=== PATIENT | female | born 1990 | race Caucasian/White ===

== ENCOUNTER 2017-11-07 10:10 | Emergency (ER) | payer OTHER ==
[2017-11-07 10:16] VITALS: BP 152/79
--- NOTE | 2017-11-07 11:04 | XRAY Report ---
Reason: productive cough Procedure Date: 11/07/2017 Accession Number: [id number] / [id number] Procedure: XR - Chest 2 View X-Ray CPT Code: 95821 FULL RESULT: EXAM: CHEST RADIOGRAPHY EXAM DATE: 11/07/2017 10:50 AM. CLINICAL HISTORY: Productive cough for about a week. COMPARISON: None. TECHNIQUE: 2 views. FINDINGS: Lungs/Pleura: No focal opacities evident. No pleural effusion. No pneumothorax. Normal volumes. Mediastinum: Heart and mediastinal contours are unremarkable. Other: None. IMPRESSION: 1. Normal 2-view chest radiography. 2. No consolidation evident. RADIA
--- NOTE | 2017-11-07 11:51 | ED Physician Documentation ---
PD HPI URI - Stated complaint Stated Complaint: COUGH - Chief complaint Chief Complaint: Resp - History obtained from History obtained from: Patient - History of Present Illness Timing - onset: How many weeks ago (1) Timing duration: Weeks (1) Timing details: Gradual onset, Still present Associated symptoms: Ear pain, Nasal congestion, Rhinorrhea, Sinus pain, Productive cough, Dyspnea Improves by: MDI/nebulizer Similar symptoms before: Diagnosis (asthma and OM) Recently seen: Not recently seen - Additional information Additional information: 27-year-old female has recently moved back to [address] [place] [address]. She has a history of asthma and she uses an inhaler. On her good days she uses an inhaler maybe once per week. She has had use her inhaler 3 times per day over the past week and she is coughing up phlegm. She has ear pain and has chronic otitis. She has chest pain with coughing paroxysms. Review of Systems Constitutional: denies: Fever, Chills, Myalgias Eyes: denies: Decreased vision Ears: reports: Ear pain Nose: reports: Rhinorrhea / runny nose, Congestion, Sinus pressure / pain Throat: reports: Sore throat Cardiac: reports: Chest pain / pressure. denies: Palpitations Respiratory: reports: Dyspnea, Cough, Wheezing GI: denies: Vomiting Skin: denies: Rash Musculoskeletal: denies: Neck pain, Back pain, Extremity pain Neurologic: denies: Generalized weakness, Focal weakness PD PAST MEDICAL HISTORY - Past Medical History Past Medical History: Yes Respiratory: Asthma Neuro: Headaches GI: GERD, Chronic constipation, Other Psych: Depression, Anxiety Musculoskeletal: Other Other Past Medical History: elers danlos syndrome - Past Surgical History Past Surgical History: Yes HEENT: Myringotomy (tubes) - Present Medications Home Medications: Ambulatory Orders Medication Instructions Recorded Confirmed Albuterol Sulf [Ventolin Hfa 1 - 2 puffs INH Q4HR PRN #1 inhaler 11/07/17 Inhaler] Azithromycin [Zithromax] 250 mg PO DAILY #6 tablet 11/07/17 Sertraline [Zoloft] 50 mg PO DAILY 11/07/17 11/07/17 - Allergies Allergies/Adverse Reactions: Allergies Allergy/AdvReac Type Severity Reaction Status Date / Time Penicillins Allergy Rash Verified 11/07/17 10:15 - Social History Does the pt smoke?: Yes Smoking Status: Current some day smoker Does the pt drink ETOH?: Yes Does the pt have substance abuse?: No - Immunizations Immunizations are current?: Yes - POLST Patient has POLST: No PD ED PE NORMAL - Vitals Vital signs reviewed: Yes (hypertensive systolic ) - General General: Alert and oriented X 3, No acute distress, Well developed/nourished - HEENT HEENT: Atraumatic, PERRL, EOMI, Pharynx benign, Other (There is tympanosclerosis bilaterally and inflamation and distortion of the TM on the left. ) - Neck Neck: Supple, no meningeal sign, No bony TTP - Cardiac Cardiac: RRR, No murmur - Respiratory Respiratory: No respiratory distress, Other (scattered wheezes ) - Abdomen Abdomen: Soft, Non tender - Back Back: No CVA TTP, No spinal TTP - Derm Derm: Normal color, Warm and dry, No rash - Extremities Extremities: No deformity, No edema - Neuro Neuro: Alert and oriented X 3, No motor deficit, No sensory deficit, Normal speech Eye Opening: Spontaneous Motor: Obeys Commands Verbal: Oriented GCS Score: 15 - Psych Psych: Normal mood, Normal affect Results - Vitals Vitals: Vital Signs - 24 hr 11/07/17 10:12 Temperature 36.7 C Heart Rate 97 Respiratory 16 Rate Blood Pressure 152/79 H O2 Saturation 98 Oxygen O2 Source Room air - Rads (name of study) 2 veiw chest Radiology: Prelim report reviewed (Impression: 1. Normal two-view chest radiography. No consolidation evident.), EMP read indepedently, See rad report PD MEDICAL DECISION MAKING - ED course Complexity details: reviewed results, re-evaluated patient, considered differential, d/w patient ED course: 27-year-old female with a history of asthma has exacerbation of her asthma associated with an upper respiratory infection with otitis media. She is administered Dexamethasone 10 [address] orally [address] will place her on some azithromycin and refill her albuterol. - Sepsis Event Vital Signs: Vital Signs - 24 hr 11/07/17 10:12 Temperature 36.7 C Heart Rate 97 Respiratory 16 Rate Blood Pressure 152/79 H O2 Saturation 98 Oxygen O2 Source Room air Departure - Departure Disposition: 01 Home, Self Care Clinical Impression: Asthmatic bronchitis with exacerbation Qualifiers: Asthma severity: mild Asthma persistence: intermittent Qualified Code(s): J45.21 - Mild intermittent asthma with (acute) exacerbation Otitis media Qualifiers: Otitis media type: suppurative Chronicity: acute Laterality: left Condition: Stable Instructions: ED Bronchitis Asthmatic, ED Otitis Media Acute Adult Follow-Up: [facility] [Provider Group] Prescriptions: Albuterol Sulf [Ventolin Hfa Inhaler] 1 - 2 puffs INH Q4HR PRN #1 inhaler PRN Reason: Shortness Of Air/Wheezing Azithromycin [Zithromax] 250 mg PO DAILY #6 tablet
[2017-11-07] MEDS ORDERED: DEXAMETHASONE 10 MG/ML VIAL PO STA (12:07)
[2017-11-07] MEDS ORDERED: CHERRY SYRUP 10 ML UDC PO ONE (12:14)
== END 2017-11-07 12:20 | disposition home or self-care (01) ==
LOC: ED 10:10
DX: J45.21 Mild intermittent asthma with (acute) exacerbation (principal); J06.9 Acute upper respiratory infection, unspecified; H66.002 Acute suppurative otitis media without spontaneous rupture of ear drum, left ear; F17.200 Nicotine dependence, unspecified, uncomplicated
CPT/HCPCS: 71046; 99283; A9270

== ENCOUNTER 2018-02-16 11:37 | Emergency (ER) | payer MEDICAID, OTHER ==
[2018-02-16 11:46] VITALS: BP 149/98
[2018-02-16] MEDS ORDERED: KETOROLAC 60 MG/2 ML VIAL IM STA (12:33)
[2018-02-16] MEDS ORDERED: CYCLOBENZAPRINE 10 MG TABLET PO STA (12:33)
--- NOTE | 2018-02-16 12:39 | ED Physician Documentation ---
History of Present Illness - Stated complaint Stated Complaint: UPPER BACK PX - Chief complaint Chief Complaint: Back Pain - History obtained from History obtained from: Patient, Family - History of Present Illness Timing: How many weeks ago (2) Pain level max: 8 Pain level now: 8 - Additonal information Additional information: 27-year-old female with pain that started in the right upper back and has now spread to the right flank, right neck and right chest. Worse with movement and better with rest. She tried to have her significant other gave her a massage, but this caused the pain to worsen. She took Motrin and Tylenol without relief. No fevers. No trauma. Does lift boxes regularly at work. Denies any possibility of . She is not breast-feeding. Review of Systems Ten Systems: 10 systems reviewed and negative Constitutional: denies: Fever, Chills Ears: denies: Ear pain Nose: denies: Rhinorrhea / runny nose, Congestion Throat: denies: Sore throat Cardiac: denies: Chest pain / pressure Respiratory: denies: Cough, Wheezing GI: denies: Abdominal Pain, Nausea, Vomiting, Diarrhea Skin: denies: Rash Musculoskeletal: denies: Neck pain, Back pain Neurologic: denies: Focal weakness, Numbness, Headache PD PAST MEDICAL HISTORY - Past Medical History Respiratory: Asthma Neuro: Headaches GI: GERD, Chronic constipation, Other Psych: Depression, Anxiety Musculoskeletal: Other - Past Surgical History Past Surgical History: Yes HEENT: Myringotomy (tubes) - Present Medications Home Medications: Ambulatory Orders Medication Instructions Recorded Confirmed Albuterol Sulf [Ventolin Hfa 1 - 2 puffs INH Q4HR PRN #1 inhaler 11/07/17 Inhaler] Sertraline [Zoloft] 50 mg PO DAILY 11/07/17 11/07/17 Cyclobenzaprine [Flexeril] 10 mg PO TID PRN #20 tablet 02/16/18 Meloxicam [Mobic] 15 mg PO DAILY PRN #20 tablet 02/16/18 - Allergies Allergies/Adverse Reactions: Allergies Allergy/AdvReac Type Severity Reaction Status Date / Time Penicillins Allergy Rash Verified 02/16/18 11:44 - Social History Does the pt smoke?: Yes Smoking Status: Current every day smoker Does the pt drink ETOH?: Yes Does the pt have substance abuse?: No - Immunizations Immunizations are current?: Yes - POLST Patient has POLST: No PD ED PE NORMAL - Vitals Vital signs reviewed: Yes - General General: Alert and oriented X 3, No acute distress - HEENT HEENT: Moist mucous membranes - Neck Neck: Supple, no meningeal sign - Cardiac Cardiac: RRR - Respiratory Respiratory: No respiratory distress, Clear bilaterally - Back Back: No spinal TTP (No midline tenderness to palpation or percussion.), Other (Paraspinal spasm across the right upper thoracic area down to the upper lumbar. Reproduces pain with palpation) - Derm Derm: Warm and dry - Neuro Neuro: Alert and oriented X 3 - Psych Psych: Normal mood, Normal affect Results - Vitals Vitals: Vital Signs - 24 hr 02/16/18 11:42 Temperature 36.3 C L Heart Rate 96 Respiratory 20 Rate Blood Pressure 149/98 H O2 Saturation 97 Oxygen O2 Source Room air PD MEDICAL DECISION MAKING - ED course Complexity details: considered differential, d/w patient, d/w family ED course: 27-year-old female with diffuse muscle spasm in the back, especially on the r ight side. Will place on meloxicam and Flexeril. We will have her do gentle stretching at home and follow-up with her doctor. Patient counseled regarding signs and symptoms for which I believe and urgent re-evaluation would be necessary. Patient with good understanding of and agreement to plan and is comfortable going home at this time This document was made in part using voice recognition software. While efforts are made to proofread this document, sound alike and grammatical errors may occur. Departure - Departure Disposition: 01 Home, Self Care Clinical Impression: Muscle spasm of back Condition: Good Instructions: ED Spasm Muscle Follow-Up: [facility] [Provider Group] Prescriptions: Cyclobenzaprine [Flexeril] 10 mg PO TID PRN #20 tablet PRN Reason: Spasms Meloxicam [Mobic] 15 mg PO DAILY PRN #20 tablet PRN Reason: pain Comments: Return if you worsen. This should improve over the next few days. Follow-up with your doctor for further care. Do not drive or operate heavy machinery while taking the Flexeril. Forms: Activity restrictions Discharge Date/Time: 02/16/18 12:50
== END 2018-02-16 12:50 | disposition home or self-care (01) ==
LOC: ED 11:37
DX: M62.830 Muscle spasm of back (principal); F17.200 Nicotine dependence, unspecified, uncomplicated
CPT/HCPCS: 96372; 99283; A9270

== ENCOUNTER 2018-05-20 11:11 | Emergency (ER) | payer MEDICAID ==
[2018-05-20 11:15] VITALS: BP 126/84
--- NOTE | 2018-05-20 12:35 | ED Physician Documentation ---
PD HPI URI - Stated complaint Stated Complaint: COATES/NECK PX/SORE THROAT - Chief complaint Chief Complaint: Heent - History obtained from History obtained from: Patient - History of Present Illness Timing - onset: How many days ago (4-5) Timing duration: Days (4-5) Timing details: Gradual onset, Still present Associated symptoms: Fever, Nasal congestion, Sore throat, Swollen nodes. No: Productive cough, NVD Contributing factors: Sick contact (her daughter with URI symptoms but more of cough and not as much sore throat.) Improves by: No: Medication Similar symptoms before: Has not had sx before Review of Systems Constitutional: reports: Fever, Myalgias Nose: reports: Congestion Throat: reports: Sore throat Respiratory: denies: Cough GI: reports: Nausea. denies: Vomiting, Diarrhea Neurologic: reports: Headache. denies: Altered mental status PD PAST MEDICAL HISTORY - Past Medical History Respiratory: Asthma Neuro: Headaches GI: GERD, Chronic constipation, Other Psych: Depression, Anxiety Musculoskeletal: Other - Past Surgical History Past Surgical History: Yes HEENT: Myringotomy (tubes) - Present Medications Home Medications: Ambulatory Orders Medication Instructions Recorded Confirmed Cetirizine [ZyrTEC] 10 mg PO DAILY #15 tablet 05/20/18 Dexamethasone [Decadron] 4 mg PO DAILY #5 tablet 05/20/18 Hydrocodone/Acetaminophen [[place] 1 each PO Q6H PRN #12 tablet 05/20/18 5-325 Tablet] - Allergies Allergies/Adverse Reactions: Allergies Allergy/AdvReac Type Severity Reaction Status Date / Time Penicillins Allergy Rash Verified 05/20/18 11:15 - Social History Does the pt smoke?: Yes Smoking Status: Current every day smoker Does the pt drink ETOH?: Yes Does the pt have substance abuse?: No - Immunizations Immunizations are current?: Yes - POLST Patient has POLST: No PD ED PE NORMAL - Vitals Vital signs reviewed: Yes - General General: Alert and oriented X 3, Well developed/nourished - HEENT HEENT: No: Pharynx benign (mild redness without exudate and tonsils swollen. No peritonsillar edema. ) - Neck Neck: Supple, no meningeal sign, Other (mild anterior adenopathy but is tender. ) - Cardiac Cardiac: RRR, No murmur - Respiratory Respiratory: Clear bilaterally - Abdomen Abdomen: Soft, Non tender - Derm Derm: Normal color, Warm and dry - Neuro Neuro: Alert and oriented X 3, No motor deficit, Normal speech Results - Vitals Vitals: Vital Signs - 24 hr 05/20/18 11:13 Temperature 36.5 C Heart Rate 101 H Respiratory 18 Rate Blood Pressure 126/84 H O2 Saturation 98 Oxygen O2 Source Room air - Labs Labs: Laboratory Tests 05/20/18 11:10 Group A Strep Rapid Negative PD MEDICAL DECISION MAKING - ED course Complexity details: reviewed results, considered differential (daughter with cough and some sore throat; patient with throat and minimal cough. Presume viral URI though and rapid strep negative, low Centor score. ), d/w patient Departure - Departure Disposition: 01 Home, Self Care Clinical Impression: Pharyngitis Qualifiers: Pharyngitis/tonsillitis etiology: unspecified etiology Qualified Code(s): J02.9 - Acute pharyngitis, unspecified Condition: Stable Record reviewed to determine appropriate education?: Yes Instructions: ED Pharyngitis Viral Prescriptions: Cetirizine [ZyrTEC] 10 mg PO DAILY #15 tablet Dexamethasone [Decadron] 4 mg PO DAILY #5 tablet Hydrocodone/Acetaminophen [[place] 5-325 Tablet] 1 each PO Q6H PRN #12 tablet PRN Reason: Pain Comments: Your strep test is negative and this seems a viral. As such we will probably last a few more days before getting better. We will decrease the symptoms with Decadron steroid for inflammation and cetirizine antihistamine for congestion. Add hydrocodone if needed for pains and if cough develops. Stay well-hydrated. Tylenol from mild pain in fevers. Recheck if not better over the next few more days. Discharge Date/Time: 05/20/18 13:30
[2018-05-20] MEDS ORDERED: diphenhydrAMINE 25 MG CAPSULE PO STA (13:12)
[2018-05-20] MEDS ORDERED: DEXAMETHASONE 10 MG/ML VIAL PO STA (13:12)
[2018-05-20] MEDS ORDERED: CHERRY SYRUP 10 ML UDC PO ONE (13:12)
[2018-05-20] MEDS ORDERED: HYDROcod/ACETAM 5/325 MG TABLET PO STA (13:12)
== END 2018-05-20 13:30 | disposition home or self-care (01) ==
LOC: ED 11:11
DX: J02.9 Acute pharyngitis, unspecified (principal); F17.200 Nicotine dependence, unspecified, uncomplicated
CPT/HCPCS: 87070; 87430; 99283; A9270

== ENCOUNTER 2018-07-04 11:55 | Outpatient (CLI) | payer MEDICAID ==
--- NOTE | 2018-07-04 13:38 | XRAY Report ---
Reason: SHOULDER PAIN Procedure Date: 07/04/2018 Accession Number: [id number] / [id number] Procedure: XRN - Shoulder 2 View RT CPT Code: FULL RESULT: EXAM: RIGHT SHOULDER RADIOGRAPHY EXAM DATE: 07/04/2018 12:10 PM. CLINICAL HISTORY: Shoulder pain. COMPARISON: CHEST 2 VIEW 11/07/2017 10:35 AM. TECHNIQUE: 3 views. FINDINGS: Bones: Normal. No fracture or bone lesion. Joints: The glenohumeral and acromioclavicular joints are normally located with minimal degenerative changes at the AC joint, new compared to 2018. Soft tissues: The visualized hemithorax is unremarkable. No soft tissue swelling. No soft tissue calcifications are detected. IMPRESSION: Minimal degenerative changes of the AC joint which are new compared to 2018, otherwise unremarkable study. RADIA
== END 2018-07-04 11:56 | disposition home or self-care (01) ==
LOC: DI.N 11:55
PROVIDERS: ATTEND Physician Assistant Medical
DX: M19.011 Primary osteoarthritis, right shoulder (principal)

== ENCOUNTER 2018-07-27 08:00 | Outpatient (CLI) | payer MEDICAID ==
[2018-07-27 21:22] LABS: CANDIDA GROUP DNA NEGATIVE (NEGATIVE); CANDIDA KRUSEI DNA NEGATIVE (NEGATIVE); TRICHOMONAS VAGINALIS DNA NEGATIVE (NEGATIVE)
== END 2018-07-27 23:59 | disposition home or self-care (01) ==
LOC: LAB.R 08:00
PROVIDERS: ATTEND Obstetrics & Gynecology
DX: L29.8 Other pruritus (principal)
CPT/HCPCS: 87661; 87801

== ENCOUNTER 2018-09-24 21:09 | Emergency (ER) | payer MEDICAID ==
[2018-09-24 21:22] VITALS: BP 131/86
--- NOTE | 2018-09-24 21:24 | ED Physician Documentation ---
History of Present Illness - Stated complaint Stated Complaint: MOUTH PX/SWELLING - Chief complaint Chief Complaint: Heent - History obtained from History obtained from: Patient - Additonal information Additional information: Patient is a previously healthy 28-year-old female presenting with left upper molar pain after tooth removal several days ago. Patient is not currently taking antibiotics. Patient is taking ibuprofen/Tylenol with minimal pain relief. Patient denies any significant gum changes except for green-colored drainage from the tooth area. Patient reports mild facial swelling without erythema or other complication. No fever. No other improving or worsening factors noted. Review of Systems Constitutional: denies: Fever Throat: reports: Dental pain / toothache PD PAST MEDICAL HISTORY - Past Medical History Past Medical History: Yes Respiratory: Asthma Neuro: Headaches GI: GERD, Chronic constipation, Other Psych: Depression, Anxiety Musculoskeletal: Other - Past Surgical History Past Surgical History: Yes HEENT: Myringotomy (tubes) - Present Medications Home Medications: Ambulatory Orders Medication Instructions Recorded Confirmed Cetirizine [ZyrTEC] 10 mg PO DAILY #15 tablet 05/20/18 Hydrocodone/Acetaminophen [[place] 1 each PO Q6H PRN #12 tablet 05/20/18 5-325 Tablet] dexAMETHasone [Decadron] 4 mg PO DAILY #5 tablet 05/20/18 Amox/Clav 875/125 [Augmentin] 1 each PO Q12H 7 Days tablet 09/24/18 - Allergies Allergies/Adverse Reactions: Allergies Allergy/AdvReac Type Severity Reaction Status Date / Time Penicillins Allergy Rash Verified 09/24/18 21:22 - Social History Does the pt smoke?: Yes Smoking Status: Current every day smoker Does the pt drink ETOH?: Yes Does the pt have substance abuse?: No - Immunizations Immunizations are current?: Yes - POLST Patient has POLST: No PD ED PE NORMAL - Vitals Vital signs reviewed: Yes - General General: Alert and oriented X 3, No acute distress, Well developed/nourished - HEENT HEENT: Atraumatic, Moist mucous membranes, Pharynx benign, Dentition benign (Multiple areas of dental caries and left upper molar removed with mild surrounding erythema, no significant swelling or drainage. Exquisitely tender to the touch.), Other (No appreciable facial swelling, erythema, or other abnormality noted) - Neck Neck: Supple, no meningeal sign - Respiratory Respiratory: No respiratory distress - Derm Derm: Normal color, Warm and dry, No rash - Extremities Extremities: No deformity, No tenderness to palpate - Neuro Neuro: Alert and oriented X 3, No motor deficit, No sensory deficit - Psych Psych: Normal mood, Normal affect Results - Vitals Vitals: Vital Signs - 24 hr 09/24/18 21:10 Temperature 36.2 C L Heart Rate 82 Respiratory 16 Rate Blood Pressure 131/86 H O2 Saturation 97 Oxygen O2 Source Room air PD MEDICAL DECISION MAKING - ED course Complexity details: considered differential, d/w patient ED course: Patient presenting with left upper molar discomfort after removal several days ago. Patient has been using ibuprofen/Tylenol with minimal improvement. Patient denies significant gum changes, but reports greenish colored drainage from the tooth socket. Patient also has noticed mild facial swelling and tenderness but no erythema. At this time, concerning for dry socket or dental abscess. Do not find evidence of facial abscess, tonsillitis, pharyngitis, peritonsillar abscess, Jhonny's angina, or other intraoral pathology. Discussed use of antibiotic and first dose was provided in the ED. Also discussed other supportive cares, strict return precautions, need for dentistry follow-up tomorrow. Otherwise, feel that patient is safe to discharge home without further imaging or invasive testing. Patient voices understanding and is comfortable with discharge plan. Departure - Departure Disposition: 01 Home, Self Care Clinical Impression: Tooth pain Condition: Good Instructions: ED Tooth Pain Follow-Up: your,dentist [Other] - Tomorrow Prescriptions: Amox/Clav 875/125 [Augmentin] 1 each PO Q12H 7 Days tablet Comments: Recommend Listerine or salt water rinses, as well as regular brushing, flossing and good oral hygiene. Please take antibiotic as starting tomorrow as you received your first dose in the ED tonight. Recommend continued use ibuprofen/Tylenol as needed for pain control, as well as ice application to reduce swelling. Follow-up with dentistry tomorrow. Return to ED sooner if experience worsening symptoms or have other concerns.
[2018-09-24] MEDS ORDERED: AMOX/CLAV 875 MG/125 MG TABLET PO STA (21:31)
== END 2018-09-24 21:39 | disposition home or self-care (01) ==
LOC: ED 21:09
DX: K08.89 Other specified disorders of teeth and supporting structures (principal); Z98.818 Other dental procedure status; K02.9 Dental caries, unspecified; F17.200 Nicotine dependence, unspecified, uncomplicated
CPT/HCPCS: 99282; 99284; A9270

== ENCOUNTER 2019-07-19 15:57 | Emergency (ER) | payer MEDICAID ==
[2019-07-19 16:13] VITALS: BP 119/75
[2019-07-19 16:39] LABS: BASOPHILS # (AUTO) 0.1 10^3/uL (0.0-0.1); EOSINOPHILS # (AUTO) 0.7 10^3/uL (0.0-0.7); HGB - HEMOGLOBIN 14.9 g/dL (12.0-16.0); LYMPHOCYTES # (AUTO) 2.6 10^3/uL (1.5-3.5); LYMPHOCYTES % (AUTO) 29.8 %; MEAN CORPUSCULAR HEMOGLOBIN 31.7 pg (27.0-31.0); MEAN CORPUSCULAR HGB CONC 34.3 g/dL (32.0-36.0); MEAN CORPUSCULAR VOLUME 92.3 fL (81.0-99.0); MEAN PLATELET VOLUME 9.9 fL (7.9-10.8); MONOCYTES # (AUTO) 0.4 10^3/uL (0.0-1.0); MONOCYTES % (AUTO) 4.1 %; NEUTROPHILS % (AUTO) 56.9 %; PLT - PLATELET COUNT 270 10^3/uL (130-450); WHITE BLOOD COUNT 8.8 x10^3/uL (4.8-10.8)
[2019-07-19 16:50] LABS: ALBUMIN 4.4 g/dL (3.2-5.5); ALBUMIN/GLOBULIN RATIO 1.3 (1.0-2.2); BILIRUBIN,TOTAL 0.8 mg/dL (0.2-1.0); CALCIUM 9.1 mg/dL (8.5-10.3); CREATININE 0.7 mg/dL (0.4-1.0); TOTAL PROTEIN 7.8 g/dL (6.7-8.2)
--- NOTE | 2019-07-19 18:59 | CT Report ---
Reason: visual changes with high blood pressure Procedure Date: 07/19/2019 Accession Number: [id number] / [id number] Procedure: CT - HEAD WO CPT Code: Final Report FULL RESULT: PROCEDURE: HEAD WO INDICATIONS: visual changes with high blood pressure TECHNIQUE: Noncontrast 4.5 mm thick angled axial sections acquired from the foramen magnum to the vertex. For radiation dose reduction, the following was used: automated exposure control, adjustment of mA and/or kV according to patient size. COMPARISON: None. FINDINGS: Image quality: Excellent. CSF spaces: Basal cisterns are patent. No extra-axial fluid collections. Ventricles are normal in size and shape. Brain: No intracranial hemorrhage, mass, or mass effect. Falcon-white matter interface is preserved. Skull and face: Calvarium and visualized facial bones are intact, without suspicious lesions. Sinuses: Visualized sinuses and mastoids are clear. IMPRESSION: 1. No acute intracranial abnormality. Reviewed by: Kenneth Aguirre MD on 07/19/2019 6:57 PM PDT Approved by: Kenneth Aguirre MD on 07/19/2019 6:57 PM PDT Station ID: [id number]
--- NOTE | 2019-07-19 19:14 | ED Physician Documentation ---
History of Present Illness - Stated complaint Stated Complaint: CHEST PX/PRESSURE - Chief complaint Chief Complaint: Cardiac - History obtained from History obtained from: Patient - Additonal information Additional information: Patient comes emergency department complaining feeling tired today after a stressful encounter work yesterday. 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 Patient states that she developed a headache and that she felt as though she could not see out of her right eye. She states her heart was racing. This lasted for several seconds, after which the patient sat down and tried to calm down. Patient states that she had been feeling lightheaded but that this resolved when she sat down. Patient denies chest pain or shortness of breath at that time. She states she went home and was able to sleep but that today, she is just felt exhausted like all her limbs are heavy and she cannot move. Patient states that she does not have any focal weakness, numbness or tingling, or or any visual changes. She is not lightheaded today. She denies any nausea or vomiting. Patient states that her chest is been burning today. Patient has no history of migraines. She states that she frequently has very stressful events at work. She is otherwise healthy. No other complaints at this time. Review of Systems Ten Systems: 10 systems reviewed and negative Constitutional: reports: Fatigue Eyes: reports: Loss of vision Ears: reports: Reviewed and negative Nose: reports: Reviewed and negative Throat: reports: Reviewed and negative Cardiac: reports: Chest pain / pressure (Burning) Respiratory: reports: Reviewed and negative GI: reports: Reviewed and negative : reports: Reviewed and negative Skin: reports: Reviewed and negative Musculoskeletal: reports: Reviewed and negative Neurologic: reports: Reviewed and negative Psychiatric: reports: Reviewed and negative Endocrine: reports: Reviewed and negative Immunocompromised: reports: Reviewed and negative PD PAST MEDICAL HISTORY - Past Medical History Respiratory: Asthma Neuro: Headaches GI: GERD, Chronic constipation, Other Psych: Depression, Anxiety Musculoskeletal: Other - Past Surgical History Past Surgical History: Yes HEENT: Myringotomy (tubes) - Present Medications Home Medications: Ambulatory Orders Medication Instructions Recorded Confirmed Cetirizine [ZyrTEC] 10 mg PO DAILY #15 tablet 05/20/18 Hydrocodone/Acetaminophen [[place] 1 each PO Q6H PRN #12 tablet 05/20/18 5-325 Tablet] dexAMETHasone [Decadron] 4 mg PO DAILY #5 tablet 05/20/18 Amox/Clav 875/125 [Augmentin] 1 each PO Q12H 7 Days tablet 09/24/18 - Allergies Allergies/Adverse Reactions: Allergies Allergy/AdvReac Type Severity Reaction Status Date / Time avocado Allergy Unknown Verified 07/19/19 16:13 Penicillins Allergy Rash Verified 09/24/18 21:22 - Social History Does the pt smoke?: Yes Smoking Status: Current every day smoker Does the pt drink ETOH?: Yes Does the pt have substance abuse?: No - Immunizations Immunizations are current?: Yes - POLST Patient has POLST: No PD ED PE NORMAL - Vitals Vital signs reviewed: Yes - General General: Alert and oriented X 3, No acute distress - HEENT HEENT: Atraumatic, PERRL, EOMI, Moist mucous membranes - Neck Neck: Supple, no meningeal sign - Cardiac Cardiac: RRR, No murmur, Strong equal pulses - Respiratory Respiratory: No respiratory distress, Clear bilaterally - Abdomen Abdomen: Soft, Non tender, Non distended - Back Back: No CVA TTP - Derm Derm: Normal color, Warm and dry, No rash - Extremities Extremities: No deformity - Neuro Neuro: Alert and oriented X 3, mohel 2-12 intact, No motor deficit, No sensory deficit, Normal speech - Psych Psych: Normal mood, Normal affect Results - Vitals Vitals: Vital Signs - 24 hr 07/19/19 16:05 Temperature 36.5 C Heart Rate 83 Respiratory 20 Rate Blood Pressure 119/75 O2 Saturation 99 Oxygen O2 Source Room air - EKG (time done) 1600 Rate: Rate (enter#) (85) Rhythm: NSR [place]: Normal Intervals: Normal [place], QRS normal QRS: Normal Ischemia: Normal ST segments Compare to prior EKG: Old EKG unavailable Computer interpretation: Agree with computer - Labs Labs: Laboratory Tests 07/19/19 07/19/19 07/19/19 16:32 16:32 16:32 WBC 8.8 RBC 4.70 Hgb 14.9 Hct 43.4 MCV 92.3 MCH 31.7 H MCHC 34.3 RDW 12.0 Plt Count 270 MPV 9.9 Neut # (Auto) 5.0 Lymph # (Auto) 2.6 Hart # (Auto) 0.4 Eos # (Auto) 0.7 Baso # (Auto) 0.1 Absolute Nucleated RBC 0.00 Nucleated RBC % 0.0 Sodium 137 Potassium 3.6 Chloride 104 Carbon Dioxide 23 Anion Gap 10.0 BUN 10 Creatinine 0.7 Estimated GFR (MDRD) 100 Glucose 90 Calcium 9.1 Total Bilirubin 0.8 AST 17 ALT 22 Alkaline Phosphatase 83 Total Protein 7.8 Albumin 4.4 Globulin 3.4 Albumin/Globulin Ratio 1.3 Lipase 32 TSH 0.67 - Rads (name of study) CT head Radiology: Final report received, EMP read indepedently, See rad report PD MEDICAL DECISION MAKING - ED course Complexity details: reviewed results, re-evaluated patient, considered differential, d/w patient ED course: Patient was very well-appearing in the emergency department, and was also young and without risk factors for cardiovascular disease. As such, I felt that a CVA/TIA yesterday was unlikely the cause of the patient's symptoms. However, the patient was worked up, given her ongoing fatigue and in light of the visual loss during the stressful event yesterday, with a CT scan of the head, as well as labs and EKG. Patient's work-up was unremarkable.The patient did also admit that she has not had any water to drink whatsoever today and have advised her that her sense of fatigue would likely be greatly improved if she drinks some water. I have discussed with her that it is important to drink 8 to 10 glasses of water per day and that she should make a concerted effort to do this. I have discussed with the patient the importance of follow-up as well as usual indications for return to the emergency department. Departure - Departure Disposition: 01 Home, Self Care Clinical Impression: Stress reaction, Dehydration Fatigue Qualifiers: Fatigue type: unspecified Qualified Code(s): R53.83 - Other fatigue Condition: Stable Instructions: ED Stress React, ED Dehydration Comments: Your labs and CT scan look good. Most likely, some of your fatigue is caused by the lack of water intake. It is very important that you drink 8 to 10 glasses of water per day. Some of your symptoms may also be a stress reaction from the stresses of your job. There is no evidence on your labs or CT. Please follow- up with your primary care physician if you continue to have these episodes during stressful events. Discharge Date/Time: 07/19/19 19:24
== END 2019-07-19 19:24 | disposition home or self-care (01) ==
LOC: ED 15:57
DX: E86.0 Dehydration (principal); F43.9 Reaction to severe stress, unspecified; R53.83 Other fatigue; R07.89 Other chest pain; F17.200 Nicotine dependence, unspecified, uncomplicated
CPT/HCPCS: 36415; 70450; 80053; 83690; 84443; 85025; 93005; 99284

== ENCOUNTER 2019-11-04 11:07 | Emergency (ER) | payer MEDICAID ==
[2019-11-04 11:12] VITALS: BP 149/94
--- NOTE | 2019-11-04 11:37 | ED Physician Documentation ---
PD HPI LOWER EXT INJURY - Stated complaint Stated Complaint: R ANKLE INJ - Chief complaint Chief Complaint: Ext Problem - History obtained from History obtained from: Patient - History of Present Illness PD HPI LOW EXT INJURY LOCATION: Right, Ankle Type of injury: Twist Where injury occurred: Home Timing - onset: Last night Worsened by: Moving, Other (walking) Associated symptoms: Swelling. No: Weakness, Numbness Similar symptoms before: Has not had sx before Review of Systems Skin: denies: Abrasion (s), Laceration (s) Neurologic: denies: Focal weakness, Numbness PD PAST MEDICAL HISTORY - Past Medical History Respiratory: Asthma Neuro: Headaches GI: GERD, Chronic constipation, Other Psych: Depression, Anxiety Musculoskeletal: Other - Past Surgical History Past Surgical History: Yes HEENT: Myringotomy (tubes) - Present Medications Home Medications: Ambulatory Orders Medication Instructions Recorded Confirmed Cetirizine [ZyrTEC] 10 mg PO DAILY #15 tablet 05/20/18 Hydrocodone/Acetaminophen [[place] 1 each PO Q6H PRN #12 tablet 05/20/18 5-325 Tablet] dexAMETHasone [Decadron] 4 mg PO DAILY #5 tablet 05/20/18 Amox/Clav 875/125 [Augmentin] 1 each PO Q12H 7 Days tablet 09/24/18 - Allergies Allergies/Adverse Reactions: Allergies Allergy/AdvReac Type Severity Reaction Status Date / Time avocado Allergy Unknown Verified 11/04/19 11:10 Penicillins Allergy Rash Verified 11/04/19 11:10 - Social History Does the pt smoke?: Yes Smoking Status: Current every day smoker Does the pt drink ETOH?: Yes Does the pt have substance abuse?: No - Immunizations Immunizations are current?: Yes - POLST Patient has POLST: No PD ED PE NORMAL - Vitals Vital signs reviewed: Yes - General General: Alert and oriented X 3, No acute distress, Well developed/nourished - Derm Derm: Normal color, Warm and dry - Extremities Extremities: Other (right ankle with tender and swelling laterally. Some swelling. No gross laxity with stress testing but pain with inversion. Achilles intact. ) - Neuro Neuro: No motor deficit, No sensory deficit Results - Vitals Vitals: Oxygen O2 Source Room air - Rads (name of study) anklexray Radiology: Prelim report reviewed (no fractures), See rad report PD MEDICAL DECISION MAKING - ED course Complexity details: reviewed results, considered differential, d/w patient Departure - Departure Disposition: 01 Home, Self Care Clinical Impression: Ankle sprain Qualifiers: Encounter type: initial encounter Involved ligament of ankle: unspecified ligament Laterality: right Qualified Code(s): S93.401A - Sprain of unspecified ligament of right ankle, initial encounter Condition: Stable Record reviewed to determine appropriate education?: Yes Instructions: ED Sprain Ankle Comments: Your x-ray is normal without any signs of fractures. A sprain however can still hurt and take 2 to 3 weeks to heal up at times. Hopefully will be less than that. Use the ankle brace when up and around for the next couple of weeks until fully improved. Crutches initially as needed for nonweightbearing or partial weightbearing. Anti-inflammatory such as ibuprofen 3 times a day and add Tylenol to it if needed every 4-6 hours. Ice elevate and rest your ankle often today you to reduce swelling. Progress activity as able. Recheck if not fully improved over the next 1 to 2 weeks. Discharge Date/Time: 11/04/19 12:54
--- NOTE | 2019-11-04 11:44 | XRAY Report ---
PROCEDURE: Ankle 3 View RT INDICATIONS: Trauma TECHNIQUE: 3 views of the ankle were acquired. COMPARISON: None FINDINGS: Bones: No fractures or dislocations. Ankle mortise is normally aligned. No suspicious bony lesions . The talar dome demonstrates an unremarkable appearance. Soft tissues: Soft tissue swelling is seen, which is most prominent laterally. IMPRESSION: Soft tissue swelling is seen. No findings of fracture are seen. However, if there is point tenderness (or other clinical concern fo r a fracture not seen on these plain films) then please consider a short-term follow-up plain film se lui sm or CT for further evaluation. Reviewed by: Logan Prieto MD on 11/04/2019 10:43 AM L[facility] Approved by: Logan Prieto MD on 11/04/2019 10:43 AM LIDA Station ID: [id number]
[2019-11-04] MEDS ORDERED: IBUPROFEN 600 MG TABLET PO STA (12:04)
[2019-11-04] MEDS ORDERED: HYDROcod/ACETAM 5/325 MG TABLET PO STA (12:04)
[2019-11-04] MEDS ORDERED: ACETAMINOPHEN 325 MG TABLET PO STA (12:04)
== END 2019-11-04 12:54 | disposition home or self-care (01) ==
LOC: ED 11:07
DX: S93.401A Sprain of unspecified ligament of right ankle, initial encounter (principal); X50.1XXA Overexertion from prolonged static or awkward postures, initial encounter; Y93.01 Activity, walking, marching and hiking; Y92.009 Unspecified place in unspecified non-institutional (private) residence as the place of occurrence of the external cause; F17.200 Nicotine dependence, unspecified, uncomplicated
CPT/HCPCS: 73610; 99282; 99283; A9270

== ENCOUNTER 2020-01-05 13:18 | Emergency (ER) | payer MEDICAID ==
--- NOTE | 2020-01-05 13:32 | ED Physician Documentation ---
PD HPI URI - Stated complaint Stated Complaint: SOA,CP,SORE THROAT - Chief complaint Chief Complaint: Resp - History obtained from History obtained from: Patient - History of Present Illness Timing - onset: How many days ago (3-4) Timing duration: Days (3-4) Timing details: Gradual onset, Still present Associated symptoms: Chills, Sore throat, Swollen nodes, Dry cough, NVD (nausea without vomiting nor diarrhea). No: Sinus pain Contributing factors: COPD / asthma (She states she has reactive airway disease and uses an inhaler periodically when she has environmental exposures or colds. She does not need it regularly.). No: Sick contact, Immunocompromised Improves by: No: Medication (No improvement in sore throat with Ibuprofen and still dyspnea/cough after MDI.), MDI/nebulizer Similar symptoms before: Has not had sx before Recently seen: Not recently seen Review of Systems Constitutional: reports: Chills, Myalgias, Fatigue. denies: Fever Nose: reports: Congestion. denies: Sinus pressure / pain Throat: reports: Sore throat Cardiac: denies: Chest pain / pressure Respiratory: reports: Dyspnea, Cough, Wheezing GI: reports: Nausea. denies: Abdominal Pain, Vomiting, Diarrhea : denies: Dysuria, Frequency Skin: denies: Rash Musculoskeletal: denies: Neck pain Neurologic: reports: Headache. denies: Confused, Altered mental status PD PAST MEDICAL HISTORY - Past Medical History Respiratory: Asthma Neuro: Headaches GI: GERD, Chronic constipation, Other Psych: Depression, Anxiety Musculoskeletal: Other - Past Surgical History Past Surgical History: Yes HEENT: Myringotomy (tubes) - Present Medications Home Medications: Ambulatory Orders Medication Instructions Recorded Confirmed Cetirizine [ZyrTEC] 10 mg PO DAILY #15 tablet 05/20/18 Hydrocodone/Acetaminophen [[place] 1 each PO Q6H PRN #12 tablet 05/20/18 5-325 Tablet] dexAMETHasone [Decadron] 4 mg PO DAILY #5 tablet 05/20/18 Amox/Clav 875/125 [Augmentin] 1 each PO Q12H 7 Days tablet 09/24/18 Albuterol 2.5 mg INH Q4H PRN #30 neb 01/05/20 HYDROcod/ACETAM 5/325 [[place] 5/325] 1 ea PO Q6H PRN #12 tablet 01/05/20 Nebulizer [Truneb Nebulizer] 1 each MC QID #1 each 01/05/20 Ondansetron Odt [Zofran] 4 mg TL Q6H PRN #20 tablet 01/05/20 dexAMETHasone [Decadron] 4 mg PO DAILY #5 tablet 01/05/20 - Allergies Allergies/Adverse Reactions: Allergies Allergy/AdvReac Type Severity Reaction Status Date / Time avocado Allergy Unknown Verified 01/05/20 13:23 Penicillins Allergy Rash Verified 01/05/20 13:23 - Living Situation Living Situation: reports: Alone Living Arrangement: reports: At home, Other (works as counselor at [employer]; she states 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 ) - Social History Does the pt smoke?: Yes Smoking Status: Current every day smoker Does the pt drink ETOH?: Yes Does the pt have substance abuse?: No - Immunizations Immunizations are current?: Yes - POLST Patient has POLST: No PD ED PE NORMAL - Vitals Vital signs reviewed: Yes - General General: Alert and oriented X 3, No acute distress, Well developed/nourished - HEENT HEENT: No: Pharynx benign (some posterior pharyngeal redness without exudate nor focal swelling. ) - Neck Neck: Supple, no meningeal sign, Other (anterior tender adenopathy. Supple otherwise. ) - Cardiac Cardiac: RRR, No murmur - Respiratory Respiratory: No: Clear bilaterally (no coarse sounds but diffuse mild exp wheezing. ) - Abdomen Abdomen: Soft, Non tender - Back Back: No CVA TTP - Derm Derm: Normal color, Warm and dry, No rash - Extremities Extremities: Normal ROM s pain, No edema, No calf tenderness / cord - Neuro Neuro: Alert and oriented X 3, No motor deficit, Normal speech Results - Vitals Vitals: Vital Signs - 24 hr 01/05/20 01/05/20 01/05/20 13:23 14:16 14:46 Temperature 36.6 C 37.1 C Heart Rate 100 94 100 Respiratory 16 18 16 Rate Blood Pressure 135/74 H 133/82 H O2 Saturation 96 97 Oxygen O2 Source Room air - Labs Labs: Laboratory Tests 01/05/20 01/05/20 14:10 14:15 POC Whole Bld Glucose 74 Group A Strep Rapid Negative - Rads (name of study) chest xray Radiology: Prelim report reviewed (no infiltrates), See rad report PD MEDICAL DECISION MAKING - ED course Complexity details: reviewed results (no pneumonia), re-evaluated patient, considered differential (Presume viral illness and can check for coronavirus by the nasal swab. She does have sore throat with some redness so a rapid strep as well. Wheezing with history of asthma so can use inhaler and presume add some steroids. Chest x-ray to evaluate for pneumonia.), d/w patient Departure - Departure Disposition: Home, Self Care Clinical Impression: Upper respiratory infection Qualifiers: URI type: unspecified URI Qualified Code(s): J06.9 - Acute upper respiratory infection, unspecified Dyspnea Qualifiers: Dyspnea type: shortness of breath Qualified Code(s): R06.02 - Shortness of breath Condition: Stable Record reviewed to determine appropriate education?: Yes Instructions: ED Upper Resp Infec No Abx Tx Follow-Up: YAHS LÓPEZ PA-C [Primary Care Provider] - Prescriptions: Albuterol 2.5 mg INH Q4H PRN #30 neb PRN Reason: Wheezing dexAMETHasone [Decadron] 4 mg PO DAILY #5 tablet HYDROcod/ACETAM 5/325 [[place] 5/325] 1 ea PO Q6H PRN #12 tablet PRN Reason: Pain Nebulizer [Truneb Nebulizer] 1 each MC QID #1 each Ondansetron Odt [Zofran] 4 mg TL Q6H PRN #20 tablet PRN Reason: Nausea / Vomiting Comments: Your chest x-ray is clear without any signs of pneumonia. Your rapid strep test is negative. At this point we will presume a viral illness. The Covid test will result in 1 or 2 days. Stay isolated and home from work until feeling better and your Covid test is resulted. Ondansetron if needed for nausea. Small frequent fluids and stay well-hydrated. Tylenol or ibuprofen if needed for fevers or pains. Hydrocodone as needed for worse pains. Continue your albuterol 2 to 3 puffs 4 times a day for the next week or so and then revert to just as needed. Decadron steroid daily for 5 days to decrease i nflammation of airways. Recheck if not improving well over the next several days and return if worsening. Forms: Activity restrictions
[2020-01-05] MEDS ORDERED: CHERRY SYRUP 10 ML UDC PO ONE (13:58)
[2020-01-05] MEDS ORDERED: ALBUTEROL 1 PUFF INH STA (13:58)
[2020-01-05] MEDS ORDERED: DEXAMETHASONE 10 MG/ML VIAL PO STA (13:58)
[2020-01-05] MEDS ORDERED: ACETAMINOPHEN 325 MG TABLET PO STA (13:59)
[2020-01-05] MEDS ORDERED: ONDANSETRON ODT 4 MG TABLET TL STA (13:59)
[2020-01-05 14:18] VITALS: BP 133/82
[2020-01-05 14:32] LABS: RAPID STREP SCREEN Negative (Negative)
--- NOTE | 2020-01-05 14:41 | XRAY Report ---
PROCEDURE: Chest 1 View X-Ray INDICATIONS: Cough and dyspnea; chest pain with breathing TECHNIQUE: One view of the chest was acquired. COMPARISON: 11/07/2017 FINDINGS: Surgical changes and devices: None. Lungs and pleura: No pleural effusions or pneumothorax. Lungs are clear. Mediastinum: Mediastinal contours appear normal. Heart size is normal. Bones and chest wall: No suspicious bony lesions. Overlying soft tissues appear unremarkable. IMPRESSION: No acute cardiopulmonary process demonstrated radiographically. Reviewed by: Kevni Bowen MD on 01/05/2020 2:40 PM PST Approved by: Kevin Bowen MD on 01/05/2020 2:40 PM PST Station ID: [id number]
== END 2020-01-05 14:56 | disposition home or self-care (01) ==
LOC: ED 13:18
DX: J06.9 Acute upper respiratory infection, unspecified (principal); Z20.828 Contact with and (suspected) exposure to other viral communicable diseases; J45.909 Unspecified asthma, uncomplicated; F17.200 Nicotine dependence, unspecified, uncomplicated
CPT/HCPCS: 71045; 87070; 87430; 87635; 94640; 94664; 99284; A9270; Q0162; 93005

== ENCOUNTER 2020-01-23 07:42 | Outpatient (CLI) | payer MEDICAID ==
--- NOTE | 2020-01-23 14:31 | XRAY Report ---
PROCEDURE: Hip w/Pelvis 2-3V RT INDICATIONS: RIGHT HIP PAIN TECHNIQUE: AP pelvis with lateral view(s) of the right hip(s). COMPARISON: None. FINDINGS: Bones: No fractures or dislocations. Pelvic ring appears intact. No suspicious bony lesions. Soft tissues: The visualized bowel gas pattern is normal. No suspicious soft tissue calcifications. IMPRESSION: No osseous lesion. If there are persistent symptoms or continued clinical concern for pathology, then repeat plain film radiographs (7-10 days) or advanced imaging (CT, MR, bone scan) should be consider ed for further evaluation. Reviewed by: Kiesha Gonzalez MD, PhD on 01/23/2020 2:29 PM PST Approved by: Kiesha Gonzalez MD, PhD on 01/23/2020 2:29 PM PST Station ID: [id number]
== END 2020-01-23 23:59 | disposition home or self-care (01) ==
LOC: DI.S 07:42
PROVIDERS: ATTEND Physician Assistant
DX: S76.011A Strain of muscle, fascia and tendon of right hip, initial encounter (principal)

== ENCOUNTER 2020-06-04 09:36 | Emergency (ER) | payer MEDICAID ==
--- OUTSIDE RECORDS SUMMARY | 2020-06-04 10:10 | EXTERNAL MEDICAL SUMMARY RPT | Continuity of Care Document ---
:1990 Demographics Phone Unavailable Preferred Language Unknown Marital Status Unknown Muslim Affiliation Unknown Race Unknown Ethnic Group Unknown Author Organization [facility] Address [address] [place] [address] Phone Social History date description facility [id number]
--- NOTE | 2020-06-04 11:39 | ED Physician Documentation ---
PD HPI HEENT - Stated complaint Stated Complaint: SWOLLEN FACE RT SIDE - Chief complaint Chief Complaint: Heent - History obtained from History obtained from: Patient - Additional information Additional information: Patient comes emergency department chief complaint of right facial swelling and pain over the TMJ for the last several days. Pt states it hurts more when she eats. No painful teeth. Pt has had her R maxillary wisdom tooth removed already. No fevers or chills. No clicking/popping of TMJ. Pt is not known to grind/clench teeth. Pt states a similar, but more mild case like this happened on the L side, but it resolved on its own. Pt states the pain radiates into her inner ear. Review of Systems Ten Systems: 10 systems reviewed and negative Constitutional: reports: Reviewed and negative Eyes: reports: Reviewed and negative Ears: reports: Ear pain (R, with face) Nose: reports: Reviewed and negative Throat: reports: Reviewed and negative Cardiac: reports: Reviewed and negative Respiratory: reports: Reviewed and negative GI: reports: Reviewed and negative : reports: Reviewed and negative Skin: reports: Reviewed and negative Musculoskeletal: reports: Reviewed and negative Neurologic: reports: Reviewed and negative Psychiatric: reports: Reviewed and negative Endocrine: reports: Reviewed and negative Immunocompromised: reports: Reviewed and negative PD PAST MEDICAL HISTORY - Past Medical History Respiratory: Asthma Neuro: Headaches Endocrine/Autoimmune: None GI: GERD, Chronic constipation, Other : None HEENT: None Psych: Depression, Anxiety Musculoskeletal: Other Derm: None - Past Surgical History Past Surgical History: Yes HEENT: Myringotomy (tubes) - Present Medications Home Medications: Ambulatory Orders Medication Instructions Recorded Confirmed Escitalopram Oxalate [Lexapro] 20 mg PO DAILY 06/04/20 06/04/20 Ibuprofen [Motrin] 1 tablet PO Q8H PRN #30 tablet 06/04/20 hydrOXYzine HCL [Hydroxyzine HCl] 25 mg PO DAILY 06/04/20 06/04/20 traZODone [Desyrel] 25 mg PO DAILY 06/04/20 06/04/20 - Allergies Allergies/Adverse Reactions: Allergies Allergy/AdvReac Type Severity Reaction Status Date / Time albuterol Allergy Nausea Verified 06/04/20 09:49 avocado Allergy Unknown Verified 06/04/20 09:49 Penicillins Allergy Rash Verified 06/04/20 09:49 - Social History Does the pt smoke?: Yes Smoking Status: Current every day smoker Does the pt drink ETOH?: Yes Does the pt have substance abuse?: No - Immunizations Immunizations are current?: Yes - POLST Patient has POLST: No PD ED PE NORMAL - Vitals Vital signs reviewed: Yes - General General: Alert and oriented X 3, No acute distress - HEENT HEENT: Atraumatic, PERRL, EOMI, Ears normal, Moist mucous membranes, Dentition benign, Other (Mild edema over R TMJ and several cm anteriorly, with moderate TTP. No erythema or induration. No mass or intraoral findings.) - Neck Neck: Supple, no meningeal sign - Respiratory Respiratory: No respiratory distress - Derm Derm: Warm and dry - Extremities Extremities: No deformity - Neuro Neuro: Alert and oriented X 3 - Psych Psych: Normal mood, Normal affect Results - Vitals Vitals: Vital Signs - 24 hr 06/04/20 11:47 Temperature 37.2 C Heart Rate 82 Respiratory 16 Rate Blood Pressure 126/74 O2 Saturation 100 Oxygen O2 Source Room air PD MEDICAL DECISION MAKING - ED course Complexity details: considered differential, d/w patient ED course: I d/w pt that I suspect either lymphadenopathy with localized swelling (though distinct LN is not palpable) or parotid obstruction and inflammation. No evidence of infection. Ear and dental/oral exams are unremarkable. No pain or clicking with movement of TMJ on exam. We have discussed hot compresses and sialagogues, and the self-limited nature of the condition either way. We have discussed the usual indications for return. Departure - Departure Disposition: 01 Home, Self Care Clinical Impression: Salivary gland obstruction Condition: Stable Instructions: Stensen Duct Obstruction About, Stensen Duct Obstruction Tx Prescriptions: Ibuprofen [Motrin] 1 tablet PO Q8H PRN #30 tablet PRN Reason: PAIN &/OR FEVER Comments: There is no evidence of infection at this time. And skin and tissues over the swollen area are normal. Your inner ear, including eardrum, looks good. There is no tenderness or swelling over the gums or any evidence of a pus pocket in your cheek. It does not sound like you have been clenching or grinding your teeth, which sometimes can cause inflammation in the jaw joint, which sits right in front of the ear. The other structure that is in the area, as we have discussed, is your parotid gland, which is one of your salivary glands. Sometimes these can become clogged with small calcium deposits, which keep the saliva from flowing out of the duct as should. This can create swelling and pain in the salivary gland as the saliva backslash. Usually, this will clear on its own in time. You can take the anti-inflammatory medication as well as use heat packs to help this along. Also, sucking on lemon candies or other things encourage saliva production can help to clear the gland, as well. There is no palpable swollen lymph node in front of your ear, although sometimes the lymph nodes around the ear can swell up and become painful, as well. This would also be a condition which would blow over on its own without specific treatment. Discharge Date/Time: 06/04/20 11:50
[2020-06-04 11:48] VITALS: BP 126/74
== END 2020-06-04 11:50 | disposition home or self-care (01) ==
LOC: ED 09:36
DX: K11.8 Other diseases of salivary glands (principal); F17.200 Nicotine dependence, unspecified, uncomplicated
CPT/HCPCS: 99282; 99284